=== PATIENT | male | born 2000 | race African-American/Black ===

== ENCOUNTER 2021-03-10 13:10 | Emergency (ER) | payer BC ==
[~2021-03-10] VITALS: Ht 193 cm; Wt 164.2 kg
--- NOTE | 2021-03-10 13:33 | NUR ---
Patient ambulated to bed 1. RN evaluating the patient at bedside.
[2021-03-10 13:34] VITALS: BP 147/86
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
--- NOTE | 2021-03-10 13:45 | NUR ---
AMRIT Cantu is evaluating the patient at bedside.
[2021-03-10] MEDS ORDERED: KETOROLAC 60 MG/2 ML VIAL IM ONE (13:50)
[2021-03-10] MEDS ORDERED: METH750T5 PO (14:42)
[2021-03-10] MEDS ORDERED: NAPR-54 PO (14:42)
[2021-03-10 14:50] VITALS: BP 147/86
--- NOTE | 2021-03-10 14:50 | NUR ---
Patient discharged with v/s stable. Written and verbal after care instructions given and explained. Patient alert, oriented and verbalized understanding of instructions. Ambulatory with steady gait. All questions addressed prior to discharge. ID band removed. Patient advised to follow up with PMD. Rx of NAPROXEN 500MG PO BID PRN PAIN, AND ROBAXIN 750MG TID PO PRN INFLAMMATION given. Patient educated on indication of medication including possible reaction and side effects. Opportunity to ask questions provided and answered.
== END 2021-03-10 14:50 | disposition home or self-care (01) ==
LOC: MED 13:10
DX: M54.2 Cervicalgia (principal); V98.8XXA Other specified transport accidents, initial encounter; Y93.89 Activity, other specified; Y92.89 Other specified places as the place of occurrence of the external cause; Y99.8 Other external cause status
CPT/HCPCS: 72050; 96372; 99283; J1885